=== PATIENT | female | born 1970 | race Caucasian/White ===

== ENCOUNTER → 2018-03-09 | Outpatient (CLI) | payer OTHER ==
[~2018-03-09] MED LIST: DOXYCYCLINE 10100 MG PO; PREDNISONE20 MG PO; TYLENOL/CODEINE1 ML PO
[2018-03-09 11:50] LABS: COLLECTION METHOD CLEAN CATCH
[2018-03-09 11:54] LABS: BASO # 0.1 (0.0-0.2); BASO % 1.3 % (0.0-2.0); EOS # 0.1 (0.0-0.7); EOS % 3.3 % (0-4.0); GRAN # 1.6 (1.4-6.5); GRAN % 39.9 % (42.2-75.2); HEMATOCRIT 40.5 % (37.0-47.0); HEMOGLOBIN 14.3 g/dl (12.5-16.0); LYMPH # 1.9 (1.2-3.4); LYMPH % 47.4 % (20.0-51.0); MEAN CELL VOLUME 86 fl (80.0-100.0); MEAN CORPUSCULAR HEMOGLOBIN 30 pg (27.0-31.0); MEAN CORPUSCULAR HGB CONC 35 g/dl (33.0-37.0); MONO # 0.3 (0.1-0.6); MONO % 7.8 % (1.7-9.3); PLATELET COUNT 211 K/mm3 (130-400); REDCELL DISTRIBUTION WIDTH-CV 11.9 % (11.5-14.5)
[2018-03-09 12:03] LABS: PH 7 (5-8); SQUAMOUS EPITHELIAL 0-2 /hpf; URINE APPEARANCE Clear; URINE BACTERIA None Seen /hpf; URINE BILIRUBIN Negative (NEGATIVE); URINE BLOOD Negative (NEGATIVE); URINE COLOR Straw; URINE GLUCOSE Negative (NEGATIVE); URINE KETONE Negative (NEGATIVE); URINE LEUKOCYTE ESTERASE Negative (NEGATIVE); URINE NITRATE Negative (NEGATIVE); URINE PROTEIN(semi-quant) Negative (NEGATIVE); URINE RBC 0-2 /hpf; URINE UROBILINOGEN Negative (NEGATIVE); URINE WBC 0-2 /hpf
[2018-03-09 12:26] LABS: ALBUMIN 4.7 gm/dL (3.5-5.0); BILIRUBIN,TOTAL 0.8 mg/dL (0.0-1.0); CALCIUM 9.6 mg/dL (8.4-10.2); CHOLESTEROL RISK RATIO 5.2; CREATININE, serum 0.66 mg/dL (0.52-1.25); POTASSIUM 3.5 mmol/L (3.4-5.0); TOTAL PROTEIN 8.2 gm/dL (6.4-8.2)
[2018-03-09 12:56] LABS: THYROID STIMULATING HORMONE 5.03 uIU/mL (0.465-4.680)
== END ==
LOC: ZCOL.LAB 11:44
DX: I10 Essential (primary) hypertension (principal)

== ENCOUNTER → 2018-08-19 | Outpatient (CLI) | payer OTHER ==
[~2018-08-19] MED LIST changes: +ZITHROMAX Z PA250 MG PO
[2018-08-19 21:29] LABS: HEMATOCRIT 39.1 % (37.0-47.0); HEMOGLOBIN 13.9 g/dl (12.5-16.0); MEAN CELL VOLUME 87 fl (80.0-100.0); MEAN CORPUSCULAR HEMOGLOBIN 31 pg (27.0-31.0); MEAN CORPUSCULAR HGB CONC 36 g/dl (33.0-37.0); MEAN PLATELET VOLUME 11.6 fl (7.4-10.4); PLATELET COUNT 218 K/mm3 (130-400); RED BLOOD COUNT 4.52 M/mm3 (4.10-5.30); REDCELL DISTRIBUTION WIDTH-CV 11.9 % (11.5-14.5)
[2018-08-19 21:41] LABS: ALBUMIN 4.6 gm/dL (3.5-5.0); BILIRUBIN,TOTAL 0.4 mg/dL (0.0-1.0); CALCIUM 9.7 mg/dL (8.4-10.2); CREATININE, serum 0.69 mg/dL (0.52-1.25); POTASSIUM 4.2 mmol/L (3.4-5.0); TOTAL PROTEIN 8.1 gm/dL (6.4-8.2)
[2018-08-19 21:54] LABS: ERYTHROCYTE SEDIMENTATION RATE 8 mm/hr (0-20)
[2018-08-19 22:11] LABS: THYROID STIMULATING HORMONE 4.73 uIU/mL (0.465-4.680)
== END ==
LOC: COL.LAB 19:57
PROVIDERS: Family Medicine
DX: I10 Essential (primary) hypertension (principal)

== ENCOUNTER → 2019-03-16 | Outpatient (CLI) | payer SELFPAY ==
[2019-03-16 10:15] LABS: THYROID STIMULATING HORMONE 6.23 uIU/mL (0.465-4.680)
== END ==
LOC: COL.LAB 08:29
DX: E03.9 Hypothyroidism, unspecified (principal)

== ENCOUNTER → 2019-04-25 | Outpatient (CLI) | payer SELFPAY | LOC: MC.RAD 14:30 | DX: Z12.31 Encounter for screening mammogram for malignant neoplasm of breast (principal) ==

== ENCOUNTER → 2019-05-09 | Outpatient (CLI) | payer SELFPAY ==
[2019-05-09 16:56] LABS: COLLECTION METHOD CLEAN CATCH
[2019-05-09 17:05] LABS: MUCOUS Present /lpf; PH 6 (5-8); SQUAMOUS EPITHELIAL 0-2 /hpf; URINE APPEARANCE Clear; URINE BACTERIA None Seen /hpf; URINE BILIRUBIN Negative (NEGATIVE); URINE BLOOD Negative (NEGATIVE); URINE COLOR Yellow; URINE GLUCOSE Negative (NEGATIVE); URINE KETONE Negative (NEGATIVE); URINE LEUKOCYTE ESTERASE Negative (NEGATIVE); URINE NITRATE Negative (NEGATIVE); URINE PROTEIN(semi-quant) Negative (NEGATIVE); URINE RBC 0-2 /hpf; URINE UROBILINOGEN Negative (NEGATIVE); URINE WBC 0-2 /hpf
== END ==
LOC: COL.LAB 15:19
PROVIDERS: Internal Medicine
DX: N39.0 Urinary tract infection, site not specified (principal)

== ENCOUNTER → 2019-08-02 | Outpatient (CLI) | payer SELFPAY ==
[2019-08-02 10:01] LABS: HEMATOCRIT 40.2 % (37.0-47.0); HEMOGLOBIN 14.1 g/dl (12.5-16.0)
[2019-08-02 10:18] LABS: ALBUMIN 4.7 gm/dL (3.5-5.0); BILIRUBIN,TOTAL 0.6 mg/dL (0.0-1.0); CALCIUM 9.5 mg/dL (8.4-10.2); CHOLESTEROL RISK RATIO 5.5; CREATININE, serum 0.71 (0.52-1.25); POTASSIUM 4.1 mmol/L (3.4-5.0); TOTAL PROTEIN 8.4 gm/dL (6.4-8.2)
[2019-08-02 10:48] LABS: THYROID STIMULATING HORMONE 3.18 uIU/mL (0.465-4.680)
== END ==
LOC: COL.LAB 09:25
PROVIDERS: Physician Assistant
DX: E03.9 Hypothyroidism, unspecified (principal); I10 Essential (primary) hypertension

== ENCOUNTER 2021-03-02 10:25 | Emergency (ER) | payer SELFPAY ==
[~2021-03-02] VITALS: Ht 157.5 cm; Wt 79.5 kg
[2021-03-02 11:57] LABS: ALANINE AMINOTRANSFERASE 59 U/L (4-34); ALBUMIN 4.6 gm/dL (3.5-5.0); ALKALINE PHOSPHATASE 135 U/L (50-136); ANION GAP 12 mmol/L (7-16); AST,SGOT 57 U/L (15-37); BILIRUBIN,TOTAL 0.5 mg/dL (0.0-1.0); BLOOD UREA NITROGEN 11 mg/dL (7-17); CARBON DIOXIDE 24 mmol/L (22-30); CHLORIDE 101 mmol/L (98-107); GLUCOSE 143 mg/dL (74-106); POTASSIUM 3.6 mmol/L (3.4-5.0); SODIUM 137 mmol/L (137-145); TOTAL PROTEIN 8.5 gm/dL (6.4-8.2)
[2021-03-02 12:00] LABS: BASO % 0.4 % (0.0-2.0); GRAN # 2.9 (1.4-6.5); GRAN % 55.4 % (42.2-75.2); HEMATOCRIT 43.1 % (37.0-47.0); HEMOGLOBIN 14.7 g/dl (12.5-16.0); LYMPH # 1.8 (1.2-3.4); LYMPH % 35.4 % (20.0-51.0); MEAN CELL VOLUME 87 fl (80.0-100.0); MEAN CORPUSCULAR HEMOGLOBIN 30 pg (27.0-31.0); MEAN CORPUSCULAR HGB CONC 34 g/dl (33.0-37.0); MEAN PLATELET VOLUME 10.7 fl (7.4-10.4); MONO # 0.4 (0.1-0.6); MONO % 8.6 % (1.7-9.3); PLATELET COUNT 150 K/mm3 (130-400); RED BLOOD COUNT 4.94 M/mm3 (4.10-5.30); REDCELL DISTRIBUTION WIDTH-CV 12.3 % (11.5-14.5)
[2021-03-02 12:10] LABS: TROPONIN-I < 0.012 ng/mL (0.000-0.035)
[2021-03-02 13:30] VITALS: BP 123/99; PULSE 96; TEMP 98
== END 2021-03-02 13:36 | disposition home or self-care (01) ==
LOC: COL.ER 10:25
PROVIDERS: Student in an Organized Health Care Education/Training Program
DX: U07.1 COVID-19 (principal); J06.9 Acute upper respiratory infection, unspecified; I10 Essential (primary) hypertension; J45.909 Unspecified asthma, uncomplicated
CPT/HCPCS: J8540

== ENCOUNTER 2021-03-05 19:56 | Emergency (ER) | payer SELFPAY ==
[~2021-03-05] VITALS: Ht 162.6 cm; Wt 68.2 kg
[2021-03-05 20:07] VITALS: TEMP 100.7
[2021-03-05] MEDS ORDERED: ZESTRIL 20MG TA20 MG PO (20:35)
[2021-03-05] MEDS ORDERED: SYNTHROID0.3 MG PO (20:36)
[2021-03-05 21:23] VITALS: BP 117/68; PULSE 96
[2021-03-06] MEDS ORDERED: LEVOXYL0.025 MG PO (21:47)
== END 2021-03-05 21:25 | disposition home or self-care (01) ==
LOC: COL.ER 19:56
DX: U07.1 COVID-19 (principal); J06.9 Acute upper respiratory infection, unspecified; Z73.0 Burn-out

== ENCOUNTER 2021-03-06 12:30 | Inpatient (IN) | payer SELFPAY ==
[~2021-03-06] VITALS: Ht 162.6 cm; Wt 74.1 kg
[~2021-03-06 12:30] MED LIST changes: +SYNTHROID0.3 MG PO; +ZESTRIL 20MG TA20 MG PO
[2021-03-06 15:30] LABS: BASO % 0.2 % (0.0-2.0); GRAN # 4.7 (1.4-6.5); GRAN % 85.5 % (42.2-75.2); HEMATOCRIT 39.3 % (37.0-47.0); HEMOGLOBIN 13.2 g/dl (12.5-16.0); LYMPH # 0.5 (1.2-3.4); LYMPH % 8.5 % (20.0-51.0); MEAN CELL VOLUME 89 fl (80.0-100.0); MEAN CORPUSCULAR HEMOGLOBIN 30 pg (27.0-31.0); MEAN CORPUSCULAR HGB CONC 34 g/dl (33.0-37.0); MEAN PLATELET VOLUME 10.6 fl (7.4-10.4); MONO # 0.3 (0.1-0.6); MONO % 5.2 % (1.7-9.3); PLATELET COUNT 192 K/mm3 (130-400); RED BLOOD COUNT 4.44 M/mm3 (4.10-5.30); REDCELL DISTRIBUTION WIDTH-CV 12.7 % (11.5-14.5)
[2021-03-06 15:32] LABS: ALANINE AMINOTRANSFERASE 54 U/L (4-34); ALBUMIN 3.9 gm/dL (3.5-5.0); ALKALINE PHOSPHATASE 280 U/L (50-136); ANION GAP 10 mmol/L (7-16); AST,SGOT 68 U/L (15-37); BILIRUBIN,TOTAL 0.4 mg/dL (0.0-1.0); BLOOD UREA NITROGEN 10 mg/dL (7-17); CALCIUM 8.7 mg/dL (8.4-10.2); CARBON DIOXIDE 23 mmol/L (22-30); CHLORIDE 107 mmol/L (98-107); CREATININE, serum 0.61 (0.52-1.25); GLUCOSE 179 mg/dL (74-106); POTASSIUM 3.5 mmol/L (3.4-5.0); SODIUM 140 mmol/L (137-145); TOTAL PROTEIN 7.8 gm/dL (6.4-8.2)
[2021-03-06 15:45] LABS: TROPONIN-I < 0.012 ng/mL (0.000-0.035)
[2021-03-06 20:30] VITALS: BP 126/60; PULSE 88; TEMP 98.8
--- NOTE | 2021-03-06 20:59 | NUR ---
Patient came to the unit 2049 with 2l of oxygen and 88 %, it was increased to 10 L by Josephine CHAVEZ. Now she is 95%.
[2021-03-06] MEDS ORDERED: LEVOXYL0.025 MG PO (21:47)
[2021-03-06 23:14] VITALS: BP 125/63; PULSE 92; TEMP 98.7
[2021-03-07 03:19] VITALS: BP 129/72; PULSE 88; TEMP 98.2
[2021-03-07 06:00] LABS: ARTERIAL BLD GAS O2 SATURATION 94.6 % (92-100); ARTERIAL BLD GAS TCO2 CT 21.9; ARTERIAL BLOOD GAS BASE EXCESS -1.9 (-2-2); ARTERIAL BLOOD GAS HCO3 20.9 meq/L (22-26); ARTERIAL BLOOD GAS PCO2 30.5 mmHg (35-45); ARTERIAL BLOOD GAS PO2 70.5 mmHg (80-100); ARTERIAL BLOOD GAS pH 7.45 (7.35-7.45)
--- NOTE | 2021-03-07 06:26 | NUR ---
Patient has had a calm night with the O2 at 10L high flow nasal canula. She is able to walk to the restroom with SOB and cough after walking. Patient is comfortable with her own clothes and refused the gown. No further needs at this time. Call light within reach. Shift report will be given to the next nurse.
--- NOTE | 2021-03-07 07:09 | NUR ---
PT AWAKE GETTING BLOOD DRAWN BY LENS MARKER, PT HAD OXYGEN IN, NON LABORED BREATHING, APPEARED PALE, TOOTHBRUSH TOOTHPASTE BASIN AND MASK BROUGHT IN FOR PT
[2021-03-07 07:22] LABS: BILIRUBIN,TOTAL 0.3 mg/dL (0.0-1.0); CREATININE, serum 0.68 (0.52-1.25); MAGNESIUM 2.4 mg/dL (1.6-2.3); POTASSIUM 4.2 mmol/L (3.4-5.0); TOTAL PROTEIN 7.8 gm/dL (6.4-8.2)
[2021-03-07 07:33] LABS: C-REACTIVE PROTEIN 13.3 mg/dL (0.0-0.9)
[2021-03-07 08:03] LABS: THYROID STIMULATING HORMONE 0.95 uIU/mL (0.350-4.940)
[2021-03-07 08:20] VITALS: BP 122/62; PULSE 65; TEMP 98.1
--- NOTE | 2021-03-07 09:13 | NUR ---
PT PLEASANT, AOX4, HAITIAN SPEAKING WITH VERY LITTLE HONG KONGER, DENIES PAIN OTHER THAN AFTER LOVENOX INJECTION. ASSESSMENT PERFORMED, MEDICATIONS GIVEN, VITALS REVIEWED, NO OTHER NEEDS AT THIS TIME.
[2021-03-07 12:19] VITALS: BP 133/68; PULSE 92; TEMP 98.2
[2021-03-07 15:49] VITALS: BP 122/68; PULSE 90; TEMP 98.6
--- NOTE | 2021-03-07 16:37 | NUR ---
early childhood education worker contacted patient via phone due to Covid status. Patient lives in [place] with her Cong and 4 young children. Reports she is fully independent. Patient does not have a DPOA-HC established and it is suggsted she does. is currently also hospitalized with Covid but she wasn't sure where he was. early childhood education worker will follow up.
--- NOTE | 2021-03-07 17:48 | NUR ---
kyrgyz speaking pt on 12L o2, extremely soa with activity, denies pain, eating well, denies n/v/d, afebrile, uneventful shift
[2021-03-07 19:40] VITALS: BP 134/77; PULSE 98; TEMP 99
--- NOTE | 2021-03-07 22:00 | NUR ---
Patient is resting in bed, alert and oriented. She presents tachypnea and O2 IS 88% at 12 L. Reports no pain, nausea, vomiting or dizzines. SOB on exertion. To notify RT about possible need to increase 02 liters.
--- NOTE | 2021-03-08 00:24 | NUR ---
Patient is now in airvo at 60 L and 82% O2. Her O2 is fluctuating between 85 and 92. Patient reports she is getting use to it. It has been difficult for her to use it. Her anxiety keep her in the higher 80s but now it is improving. Some melatonin has been provided. Continue monitoring.
[2021-03-08 00:32] LABS: ARTERIAL BLD GAS O2 SATURATION 90.6 % (92-100); ARTERIAL BLD GAS TCO2 CT 21.5; ARTERIAL BLOOD GAS BASE EXCESS -3.1 (-2-2); ARTERIAL BLOOD GAS HCO3 20.5 meq/L (22-26); ARTERIAL BLOOD GAS PCO2 32.6 mmHg (35-45); ARTERIAL BLOOD GAS PO2 58.7 mmHg (80-100); ARTERIAL BLOOD GAS pH 7.42 (7.35-7.45)
--- NOTE | 2021-03-08 02:00 | NUR ---
Patient was transfered to the ICU. She was with the Bipap, with 95 O2% sat and 100 HR. ABG with low levels of O2. Patient stated she do not want to be intubated, but agree for chest compressions, medications and electric shocks. Family was notified.
[2021-03-08 02:30] VITALS: BP 120/70; PULSE 100; TEMP 98.4
--- NOTE | 2021-03-08 02:47 | NUR ---
Patient arrives to ICU room 2 at 0230. She arrives receiving BiPap at 18/10, with 75% FiO2. Patient is dyspneic at rest; tachypneic, breathing 40-50 breaths/min. All other vitals within normal limits. Arrives with one peripheral 20G IV to the right hand. No fluids infusing at this time. She is alert, oriented, and serbian-speaking only. She follows verbal commands. At this time, she is tolerating BiPap well. She does not appear labored, however, she is quite short of breath. Patient arrives wearing her own pajamas and robe. She refuses hospital gown at this time. She has her cell phone, cement kiln operator, and sandals with her.
[2021-03-08 03:08] LABS: ARTERIAL BLD GAS TCO2 CT 21.2; ARTERIAL BLOOD GAS BASE EXCESS -3.4 (-2-2); ARTERIAL BLOOD GAS HCO3 20.2 meq/L (22-26); ARTERIAL BLOOD GAS PCO2 32.3 mmHg (35-45); ARTERIAL BLOOD GAS PO2 107.4 mmHg (80-100); ARTERIAL BLOOD GAS pH 7.41 (7.35-7.45)
[2021-03-08 04:00] VITALS: BP 113/54; PULSE 66; TEMP 98
--- NOTE | 2021-03-08 04:05 | NUR ---
Notified [facility] physician, Dr. Cordero, of patient's chest CT and ABG results. No new orders received at this time.
--- NOTE | 2021-03-08 07:00 | NUR ---
RECEIVED REPORT FROM CULLEN LINARES. PT RESTING EASILY ON BIPAP AT 55%. VSS. CALL LIGHT WITHIN REACH.
[2021-03-08 08:00] VITALS: BP 104/61; PULSE 65; TEMP 98.3
--- NOTE | 2021-03-08 10:58 | NUR ---
Due to pt fatigue I called pt's friend and listed contact, An Rodriguez at #[phone]. She stated the pt has 4 daughters: Teri the oldest- her phone #[phone], Urszula, Lizbeth and Danii. Currently they all live at home with pt and per An they have Covid. All of the daughters speak fluent Lao per An. The patient uses [facility] for her PCP. The patient uses [facility] and the clinic to obtain her medications. There is no current DPOA and ZENY Gonzales notified.
[2021-03-08 12:00] VITALS: BP 102/63; PULSE 91; TEMP 98.2
--- NOTE | 2021-03-08 13:37 | NUR ---
farmworker chicken farm and nurse assisted with patient in completing a durable power of trust and estates attorney for health care. Patient appointed her 19 year old daughter, Teri #[phone], and her sister, Alexsandra. Worker contacted Teri and Alexsandra and advised of the above information and emailed them both copies of the documents. Teri states she is caring for her younger siblings as they have covid at this time. Teri's paternal grandparents reside in [place] and are supportive of patient's children.
[2021-03-08 16:00] VITALS: BP 117/70; PULSE 95; TEMP 98.5
[2021-03-08 20:07] VITALS: BP 108/64; PULSE 93; TEMP 98.7
--- NOTE | 2021-03-08 20:21 | NUR ---
Assessment completed and charted. Patient tachpneic with shallow breathing. Denies shortness of breath at this time. Airvo at 30L 75% saturations 91%. Denies needs. Call light in reach.
[2021-03-09] VITALS (344 sets, daily range): BP systolic 97–141; BP diastolic 59–79; PULSE 65–102; TEMP 98.9–100; O2SAT 80–100
[2021-03-09 05:38] LABS: ARTERIAL BLD GAS O2 SATURATION 96.3 % (92-100); ARTERIAL BLD GAS TCO2 CT 21.4; ARTERIAL BLOOD GAS BASE EXCESS -3.5 (-2-2); ARTERIAL BLOOD GAS HCO3 20.4 meq/L (22-26); ARTERIAL BLOOD GAS PCO2 33.4 mmHg (35-45); ARTERIAL BLOOD GAS PO2 87.8 mmHg (80-100)
[2021-03-09 05:46] LABS: HEMATOCRIT 38.8 % (37.0-47.0); HEMOGLOBIN 12.9 g/dl (12.5-16.0); MEAN CELL VOLUME 89 fl (80.0-100.0); MEAN CORPUSCULAR HEMOGLOBIN 30 pg (27.0-31.0); MEAN CORPUSCULAR HGB CONC 33 g/dl (33.0-37.0); MEAN PLATELET VOLUME 9.5 fl (7.4-10.4); RED BLOOD COUNT 4.36 M/mm3 (4.10-5.30); REDCELL DISTRIBUTION WIDTH-CV 12.8 % (11.5-14.5)
[2021-03-09 05:48] LABS: PLATELET COUNT 357 K/mm3 (130-400)
[2021-03-09 06:11] LABS: ALBUMIN 3.8 gm/dL (3.5-5.0); BILIRUBIN,TOTAL 0.3 mg/dL (0.0-1.0); CALCIUM 8.7 mg/dL (8.4-10.2); CREATININE, serum 0.68 (0.52-1.25); POTASSIUM 4.2 mmol/L (3.4-5.0); TOTAL PROTEIN 7.3 gm/dL (6.4-8.2)
[2021-03-09 06:18] LABS: ANISOCYTOSIS 1+; BURR CELLS 2+; LYMPHOCYTE 15 % (20.0-51.0); METAMYELOCYTE 1 % (0-0); MYELOCYTE 2 % (0-0); NEUTROPHILS 79 % (42.0-75.2); PLATELET ESTIMATE INCREASED (NORMAL)
[2021-03-09 06:19] LABS: HYPOCHROMIA 1+
--- NOTE | 2021-03-09 06:25 | NUR ---
Patient received x1 dose of ativan for anxiety with bipap during night. Wore bipap most of night. On airvo this AM. Otherwise uneventful night.
--- NOTE | 2021-03-09 08:00 | NUR ---
Patient resting in bed with AirVo on. VS WNL. Report received from CULLEN Arzate. Will continue to monitor.
--- NOTE | 2021-03-09 09:30 | NUR ---
Patient was assisted to the commode and she becomes very anxious with activity and tachypnea. Dr. Kidd called and PRN ativan frequency is increased to Q4H PRN. Ativan given and she calms, SPO2 improves. Will continue to monitor.
--- NOTE | 2021-03-09 14:37 | NUR ---
Patient continues to be on 50L/75% AirVo. She becomes tachypneic with conversation or exertion, with SPO2 falling into 80s easily. Recovery from that point takes several minutes. Will continue to monitor.
--- NOTE | 2021-03-09 19:00 | NUR ---
Report given to CULLEN Arzate
--- NOTE | 2021-03-09 20:54 | NUR ---
Assessment complete and charted. Given ativan for anxiety after using restroom. Denies other needs. Call light in reach.
[2021-03-10] VITALS (7 sets, daily range): BP systolic 108–147; BP diastolic 58–78; PULSE 69–95; TEMP 97.9–98.5
--- NOTE | 2021-03-10 00:15 | NUR ---
Patient transferred to [facility] at 2350. Report given to Debbi BERMAN
--- NOTE | 2021-03-10 05:32 | NUR ---
Patient slept well since transferred to the medical floor. SPO2 remains above 90% on Airvo 50L/ FiO2 85%. Patient got up and use bedside commode at 0500. Patient became SOB with activities and got very anxious. PRN Ativan given for anxiety. PRN Robitussin given for occasional cough. Call light within reach. Will continue to monitor.
--- NOTE | 2021-03-10 07:01 | NUR ---
PT SLEEPING IN ROOM WITH AIRVO IN PLACE
[2021-03-10 08:47] LABS: HEMATOCRIT 38.4 % (37.0-47.0); HEMOGLOBIN 12.9 g/dl (12.5-16.0); MEAN CELL VOLUME 87 fl (80.0-100.0); MEAN CORPUSCULAR HEMOGLOBIN 29 pg (27.0-31.0); MEAN CORPUSCULAR HGB CONC 34 g/dl (33.0-37.0); MEAN PLATELET VOLUME 9.5 fl (7.4-10.4); PLATELET COUNT 378 K/mm3 (130-400); RED BLOOD COUNT 4.41 M/mm3 (4.10-5.30); REDCELL DISTRIBUTION WIDTH-CV 12.4 % (11.5-14.5)
[2021-03-10 09:02] LABS: ALBUMIN 3.5 gm/dL (3.5-5.0); BILIRUBIN,TOTAL 0.3 mg/dL (0.0-1.0); C-REACTIVE PROTEIN 1.8 mg/dL (0.0-0.9); CALCIUM 8.8 mg/dL (8.4-10.2); CREATININE, serum 0.75 (0.52-1.25); POTASSIUM 3.9 mmol/L (3.4-5.0); TOTAL PROTEIN 6.9 gm/dL (6.4-8.2)
[2021-03-10 09:37] LABS: BAND 2 % (0-10); LYMPHOCYTE 13 % (20.0-51.0); METAMYELOCYTE 1 % (0-0); NEUTROPHILS 82 % (42.0-75.2); PLATELET ESTIMATE NORMAL (NORMAL)
[2021-03-10 09:38] LABS: ANISOCYTOSIS 1+; MICROCYTOSIS 1+
--- NOTE | 2021-03-10 10:37 | NUR ---
PT PLEASANT, AOX4, SPEAKS LITTLE DIVEHI, PT ABLE TO COMMUNICATE HER ANXIETY, ATIVAN GIVEN WITH OTHER MEDICATIONS. UPON ENTERING ROOM PT HAD OXYGEN OUT OF NOSE, TOLD HER PT PUT THE OXYGEN BACK AND SHE DID, VITALS TAKEN, ASSESSMENT PERFORMED, BREAKFAST ORDERED FOR PT AND BROUGHT IN WHEN IT ARRIVED ON THE FLOOR. PT APPEARS VERY WEAK, PAINTINGS CONSERVATOR EQUAL, NO OTHER NEEDS AT THIS TIME
--- NOTE | 2021-03-10 11:58 | NUR ---
ASSISTED PT TO BEDSIDE COMMODE. PT HAD LOOSE BM AND URINE OUTPUT. PT ASSISTED BACK TO BED AND PT SOB. LABORED TACHYPNIC BREATHING PRESENT. PULSE OX 85% UPON RETURNING TO BED. STAYED WITH PT PT RECOVERED. ORDERED LUNCH FOR PT.
--- NOTE | 2021-03-10 17:00 | NUR ---
PT ANXIOUS IN AM, CALMED DOWN IN AFTERNOON. PT ON AIRVO, MULTIPLE FAMILY MEMBERS UPDATED ON PT STATUS. PT DENIES PAIN, UNEVENTFUL SHIFT OVERALL
--- NOTE | 2021-03-10 23:06 | NUR ---
Assessment completed,alert and oriented. Patient is on airvo at 60Lat 90%. Patient get up to bedside commode independently with SOB. Able to get back to bed with minimal difficulty breathing. Patient speaks hebrew and little amharic. Able to say what she wants. Denies pain and other complains. She will be on bipap and RT is ready to put it on. Will continue to follow.
[2021-03-11 03:37] VITALS: BP 130/73; PULSE 70; TEMP 97.8
[2021-03-11 08:20] VITALS: BP 131/63; PULSE 92; TEMP 98.7
[2021-03-11 08:24] LABS: EOS # 0.1 (0.0-0.7); EOS % 1.1 % (0-4.0); GRAN # 5.5 (1.4-6.5); HEMATOCRIT 41.8 % (37.0-47.0); HEMOGLOBIN 14.1 g/dl (12.5-16.0); LYMPH # 1.4 (1.2-3.4); LYMPH % 18.9 % (20.0-51.0); MEAN CELL VOLUME 87 fl (80.0-100.0); MEAN CORPUSCULAR HEMOGLOBIN 29 pg (27.0-31.0); MEAN CORPUSCULAR HGB CONC 34 g/dl (33.0-37.0); MEAN PLATELET VOLUME 9.6 fl (7.4-10.4); MONO # 0.4 (0.1-0.6); MONO % 5.8 % (1.7-9.3); PLATELET COUNT 461 K/mm3 (130-400); RED BLOOD COUNT 4.82 M/mm3 (4.10-5.30); REDCELL DISTRIBUTION WIDTH-CV 12.2 % (11.5-14.5)
[2021-03-11 08:31] LABS: ALBUMIN 3.7 gm/dL (3.5-5.0); BILIRUBIN,TOTAL 0.3 mg/dL (0.0-1.0); C-REACTIVE PROTEIN 1.3 mg/dL (0.0-0.9); CALCIUM 8.9 mg/dL (8.4-10.2); CREATININE, serum 0.77 (0.52-1.25); POTASSIUM 3.6 mmol/L (3.4-5.0); TOTAL PROTEIN 7.3 gm/dL (6.4-8.2)
--- NOTE | 2021-03-11 08:57 | NUR ---
Pt awake upon entry, no C/O pain at this time. Dyspnea at rest with diminished lung sounds. Shiuft assessment complete, left Pt call light in reach, bed in lowest position, Pt needs met.
[2021-03-11 12:40] VITALS: BP 128/72; PULSE 87; TEMP 98.6
[2021-03-11 17:16] VITALS: BP 130/66; PULSE 85; TEMP 98.1
--- NOTE | 2021-03-11 18:12 | NUR ---
Pt resting well in the room. No c/o pain during the day. Currently on 60 LPM AIRVO. Needs met throughout the day. VS have remained stable.
[2021-03-11 20:41] VITALS: BP 151/76; PULSE 87; TEMP 99
[2021-03-12] VITALS (473 sets, daily range): BP systolic 87–142; BP diastolic 52–83; PULSE 54–99; TEMP 97.6–98.5; O2SAT 87–99
--- NOTE | 2021-03-12 01:00 | NUR ---
Patient not tolerating Bipap, increased respiratory rate to 50-60/min, c/o anxiety, previously medicated with prn Ativan, c/o chest pain, VS as listed, Call placed to Jennifer HASSAN, scrap preparation supervisor, charge nurse, ICU charge nurse came to bedside.
--- NOTE | 2021-03-12 01:19 | NUR ---
House supervisior notified this nurse patient breathing 50-60 RR per min. on bipap. Assessed patient in room. Patient on bipap 93% saturations on 85% FiO2. Given 1mg of ativan per Jennifer HASSAN. Patient code status reviewed. Does not wish intubation. Patient reporting sharp chest pains and observed rubbing chest. Jennifer HASSAN aware. RT in room for breathing treatment and ABG/EKG.
[2021-03-12 01:23] LABS: ARTERIAL BLD GAS O2 SATURATION 94.2 % (92-100); ARTERIAL BLD GAS TCO2 CT 25.2; ARTERIAL BLOOD GAS BASE EXCESS -2.1 (-2-2); ARTERIAL BLOOD GAS HCO3 23.8 meq/L (22-26); ARTERIAL BLOOD GAS PCO2 44.6 mmHg (35-45); ARTERIAL BLOOD GAS PO2 78.8 mmHg (80-100); ARTERIAL BLOOD GAS pH 7.35 (7.35-7.45)
--- NOTE | 2021-03-12 03:15 | NUR ---
Patient transferred to ICU room 4 per Jennifer HASSAN - report given to Orville BERMAN, Spoke to daughter Teri - updated on patient condition and transfer.
[2021-03-12 05:11] LABS: ARTERIAL BLD GAS O2 SATURATION 90.9 % (92-100); ARTERIAL BLD GAS TCO2 CT 25.8; ARTERIAL BLOOD GAS BASE EXCESS -0.5 (-2-2); ARTERIAL BLOOD GAS HCO3 24.5 meq/L (22-26); ARTERIAL BLOOD GAS PCO2 41.4 mmHg (35-45); ARTERIAL BLOOD GAS pH 7.39 (7.35-7.45)
--- NOTE | 2021-03-12 06:36 | NUR ---
PT ADMITTED TO ICU AFTER PRESENTING WITH RESPIRATORY DISTRESS ON MEDICAL UNIT. ORIGINALLY NOTED THAT PATIENT WAS FEELING SHORT OF BREATH. PT WAS PLACED ON BIPAP THEN BECAME ANXIOUS. SEVERAL ATIVAN DOSES GIVEN TO ATTEMPT TO CALM PT. PT RESPIRATIONS WERE 50+ PER MIN WITH SATS IN THE 80S. NURSES ASKED PATIENT MULTIPLE TIMES IF SHE WOULD LIKE TO BE INTUBATED AND PT ORIGINALLY ANSWERED NO BUT AFTER EXPLAINING TO PATIENT THAT A VENT IS NOT "LIFE SUPPORT" NOR DOES IT MEAN YOU WILL , SHE AGREED TO BE INTUBATED. DUE TO PT PRESENTATION, AN ABG AND CHEST CXR WERE COMPLETED. CXR SHOWED SMALL MEDIASTINAL PNEUMOTHORAX THAT DID NOT REQUIRE CHEST TUBE AT THIS TIME. PT REPORTING ALOT OF PAIN IN CHEST/STERNUM. MORHINE GIVEN AND EKG OBTAINED. PRECEDEX DRIP ALSO STARTED TO HELP REDUCE TACHYPNEA. WILL CONTINUE CONTINUOUS VITALS IN ICU AT THIS TIME.
--- NOTE | 2021-03-12 08:30 | NUR ---
Patient drowsy on precedex but easily arousable. Follows simple commands appropriately. Will continue to monitor.
[2021-03-12 08:40] LABS: BASO % 0.2 % (0.0-2.0); EOS # 0.1 (0.0-0.7); EOS % 1.5 % (0-4.0); GRAN # 7.9 (1.4-6.5); GRAN % 86.8 % (42.2-75.2); HEMOGLOBIN 13.3 g/dl (12.5-16.0); LYMPH # 0.7 (1.2-3.4); LYMPH % 7.4 % (20.0-51.0); MEAN CELL VOLUME 86 fl (80.0-100.0); MEAN CORPUSCULAR HEMOGLOBIN 29 pg (27.0-31.0); MEAN CORPUSCULAR HGB CONC 34 g/dl (33.0-37.0); MEAN PLATELET VOLUME 9.2 fl (7.4-10.4); MONO # 0.3 (0.1-0.6); MONO % 3.2 % (1.7-9.3); PLATELET COUNT 419 K/mm3 (130-400); RED BLOOD COUNT 4.55 M/mm3 (4.10-5.30); REDCELL DISTRIBUTION WIDTH-CV 12.2 % (11.5-14.5)
[2021-03-12 08:51] LABS: CALCIUM 8.9 mg/dL (8.4-10.2); CREATININE, serum 0.69 (0.52-1.25); MAGNESIUM 2.1 mg/dL (1.6-2.3); POTASSIUM 4.3 mmol/L (3.4-5.0)
--- NOTE | 2021-03-12 15:30 | NUR ---
Cuban translater reached via telephone to explain chest tube placement to patient. Also received verbal consent from the via telephone.
--- NOTE | 2021-03-12 15:54 | NUR ---
at bedside to place chest tub. tolerated well. Finished at 1605. Called Radiology to confirm placement.
[2021-03-12 17:34] LABS: ARTERIAL BLD GAS O2 SATURATION 87.8 % (92-100); ARTERIAL BLD GAS TCO2 CT 25.4; ARTERIAL BLOOD GAS BASE EXCESS -0.3 (-2-2); ARTERIAL BLOOD GAS HCO3 24.2 meq/L (22-26); ARTERIAL BLOOD GAS PCO2 39.2 mmHg (35-45); ARTERIAL BLOOD GAS PO2 55.8 mmHg (80-100); ARTERIAL BLOOD GAS pH 7.41 (7.35-7.45)
--- NOTE | 2021-03-12 18:19 | NUR ---
Patient has been bipap dependent during this shift. After giving sips of water patient immediately wanted BIPAP back on. Notified hospitalist and will initate IV fluids.
[2021-03-13] VITALS (865 sets, daily range): BP systolic 74–165; BP diastolic 44–85; PULSE 50–121; TEMP 98.4–98.9; O2SAT 77–98
[2021-03-13 00:10] LABS: ARTERIAL BLD GAS O2 SATURATION 92.3 % (92-100); ARTERIAL BLD GAS TCO2 CT 24.3; ARTERIAL BLOOD GAS BASE EXCESS -1.2 (-2-2); ARTERIAL BLOOD GAS HCO3 23.2 meq/L (22-26); ARTERIAL BLOOD GAS PO2 68.7 mmHg (80-100)
[2021-03-13 04:48] LABS: BASO % 0.2 % (0.0-2.0); EOS # 0.2 (0.0-0.7); EOS % 2.3 % (0-4.0); GRAN # 8.9 (1.4-6.5); GRAN % 89.5 % (42.2-75.2); HEMOGLOBIN 13.6 g/dl (12.5-16.0); LYMPH # 0.5 (1.2-3.4); LYMPH % 4.9 % (20.0-51.0); MEAN CELL VOLUME 87 fl (80.0-100.0); MEAN CORPUSCULAR HEMOGLOBIN 30 pg (27.0-31.0); MEAN CORPUSCULAR HGB CONC 34 g/dl (33.0-37.0); MEAN PLATELET VOLUME 9.7 fl (7.4-10.4); MONO # 0.3 (0.1-0.6); MONO % 2.5 % (1.7-9.3); PLATELET COUNT 385 K/mm3 (130-400); RED BLOOD COUNT 4.58 M/mm3 (4.10-5.30); REDCELL DISTRIBUTION WIDTH-CV 12.6 % (11.5-14.5)
[2021-03-13 05:00] LABS: C-REACTIVE PROTEIN 0.9 mg/dL (0.0-0.9); CALCIUM 8.7 mg/dL (8.4-10.2); CREATININE, serum 0.62 (0.52-1.25); POTASSIUM 4.1 mmol/L (3.4-5.0)
[2021-03-13 05:17] LABS: ARTERIAL BLD GAS O2 SATURATION 89.8 % (92-100); ARTERIAL BLD GAS TCO2 CT 24.5; ARTERIAL BLOOD GAS BASE EXCESS -0.8 (-2-2); ARTERIAL BLOOD GAS HCO3 23.4 meq/L (22-26); ARTERIAL BLOOD GAS PCO2 37.1 mmHg (35-45); ARTERIAL BLOOD GAS PO2 60.1 mmHg (80-100); ARTERIAL BLOOD GAS pH 7.42 (7.35-7.45)
--- NOTE | 2021-03-13 07:00 | NUR ---
RECEIVED REPORT FROM CULLEN FERRARA. PT RESTING EASILY ON BIPAP AT 100%. CALL LIGHT WITHIN REAC. VSS. SEE GTT FLOWSHEET.
--- NOTE | 2021-03-13 07:43 | NUR ---
[facility] PROVIDER NOTIFIED AT APPROX 0600 OF DDIMER ELEVATED. REVIEW PT DIAGNOSIS AND REASON FOR CHECKING (ELEVATED PLATELETS AND COVID DIAGNOSIS). ELEVATED DDIMER EXPECTED AND NO CHANGE TO BE MADE TO PLAN OF CARE.
--- NOTE | 2021-03-13 08:40 | NUR ---
DR PERDOMO REQUESTS PRECEDEX TO BE WEANED OFF AND ONLY TO RESTART IF PT UNABLE TO CALM DOWN AFTER GTT IS OFF AND VITAL SIGNS UNSTABLE. WILL MONITOR CLOSELY. SEE GTT FLOWSHEET.
[2021-03-13 16:59] LABS: ARTERIAL BLD GAS O2 SATURATION 88.7 % (92-100); ARTERIAL BLD GAS TCO2 CT 22.7; ARTERIAL BLOOD GAS BASE EXCESS -1.8 (-2-2); ARTERIAL BLOOD GAS HCO3 21.7 meq/L (22-26); ARTERIAL BLOOD GAS PCO2 33.3 mmHg (35-45); ARTERIAL BLOOD GAS pH 7.43 (7.35-7.45)
--- NOTE | 2021-03-13 17:40 | NUR ---
DR RUBALCAVA NOTIFIED OF ABG AND CURRENT VS. STATES WILL TALK TO DR PERDOMO AND GET BACK TO RN.
--- NOTE | 2021-03-13 18:05 | NUR ---
DR RUBALCAVA CALLS BACK AND STATES DR PERDOMO WOULD LIKE PT TO BE INTUBATED. WARDROBE SUPERVISOR CECILE USED AND PT NODS HEAD IN UNDERSTANDING OF INTUBATION. DR RUBALCAVA STATES WILL CALL DAUGHTER CAN TO UPDATE HER. ANESTHESIA NOTIFIED. AWAITING ARRIVAL.
--- NOTE | 2021-03-13 19:00 | NUR ---
CARE GIVEN TO CULLEN FLOREZ. ANESTHESIA AT BEDSIDE. SET UP STARTED FOR INTUBATION PROCESS.
--- NOTE | 2021-03-13 19:10 | NUR ---
1904 PATIENT IS GIVING CONSENT TO BE INTUBATED 1907 16 F OLIVERA PLACED/ 50 CC RESDIUAL CLEAR YELLOW URINE, FASTENED TO RIGHT UPPER LEG 1910 TIME OUT WITH TOMAS SHAW DIE CUTTER DIAMOND FOR INTUBATION 1911 200MG OF PROPOFOLOL ADMINISTERED MICAH PICC/ 100 MG SUCC ASMINISTERED MICAH PICC 1913 7.5 ET TUBE INSERTED TO 22 AT TEETH, COLOR CHANGE CO2 DETECTOR FROM GREEN TO GOLD, LUNG SOUNDS HEARD BILATERAL NO NOSE OVER STOMACH 1914 FENT AND PROPOFOL IV BEGINS 1916 RESTRAINTS APPLIED TO WRIST 1918 OG PLACED 14 F 65 TO LIPS, INTERMITTANT SUCTION PLACED 1918 CHEST XRAY OBTAINED 1922 IV NS BOLUS BEGINS
[2021-03-13 21:07] LABS: ARTERIAL BLD GAS TCO2 CT 21.4; ARTERIAL BLOOD GAS BASE EXCESS -5.2 (-2-2); ARTERIAL BLOOD GAS HCO3 20.2 meq/L (22-26); ARTERIAL BLOOD GAS PO2 87.9 mmHg (80-100); ARTERIAL BLOOD GAS pH 7.33 (7.35-7.45)
[2021-03-14] VITALS (730 sets, daily range): BP systolic 81–173; BP diastolic 57–88; PULSE 52–86; TEMP 96.7–99.2; O2SAT 66–100
[2021-03-14 04:12] LABS: ARTERIAL BLD GAS O2 SATURATION 94.6 % (92-100); ARTERIAL BLD GAS TCO2 CT 19.7; ARTERIAL BLOOD GAS BASE EXCESS -5.5 (-2-2); ARTERIAL BLOOD GAS HCO3 18.7 meq/L (22-26); ARTERIAL BLOOD GAS PO2 78.1 mmHg (80-100); ARTERIAL BLOOD GAS pH 7.37 (7.35-7.45)
[2021-03-14 04:42] LABS: HEMATOCRIT 40.2 % (37.0-47.0); MEAN CELL VOLUME 85 fl (80.0-100.0); MEAN CORPUSCULAR HEMOGLOBIN 30 pg (27.0-31.0); MEAN CORPUSCULAR HGB CONC 35 g/dl (33.0-37.0); MEAN PLATELET VOLUME 9.5 fl (7.4-10.4); RED BLOOD COUNT 4.75 M/mm3 (4.10-5.30); REDCELL DISTRIBUTION WIDTH-CV 12.3 % (11.5-14.5)
[2021-03-14 04:48] LABS: PLATELET COUNT 489 K/mm3 (130-400)
[2021-03-14 04:52] LABS: CALCIUM 8.9 mg/dL (8.4-10.2); CREATININE, serum 0.76 (0.52-1.25); POTASSIUM 4.2 mmol/L (3.4-5.0)
[2021-03-14 05:00] LABS: BAND 4 % (0-10); EOSINOPHIL 1 % (0-4); LYMPHOCYTE 5 % (20.0-51.0); NEUTROPHILS 89 % (42.0-75.2); PLATELET ESTIMATE INCREASED (NORMAL)
--- NOTE | 2021-03-14 05:23 | NUR ---
PATIENT JUST WAS INTUBATED AND NOW IS PRONE NO SEDATION VACATION TO DAY
[2021-03-14 10:55] LABS: MAGNESIUM 2.4 mg/dL (1.6-2.3); PHOSPHOROUS 4.7 mg/dL (2.5-4.5)
[2021-03-14 15:13] LABS: ARTERIAL BLD GAS O2 SATURATION 90.4 % (92-100); ARTERIAL BLD GAS TCO2 CT 22.8; ARTERIAL BLOOD GAS BASE EXCESS -2.5 (-2-2); ARTERIAL BLOOD GAS HCO3 21.7 meq/L (22-26); ARTERIAL BLOOD GAS PCO2 35.9 mmHg (35-45); ARTERIAL BLOOD GAS PO2 60.3 mmHg (80-100)
--- NOTE | 2021-03-14 17:26 | NUR ---
SEDATION VACATION NOT PERFORMED AT THIS TIME AND NO DOSE CHANGE TO MEDICATIONS. THE PATIENT IS PRONED AND EASILY AROUSED AND FOLLOWS COMMANDS. THE PATIENT NODS HEAD YES OR NO TO QUESTIONS AND PAPER PATTERN FOLDER HANDS AND MOVES FEET WHEN ASKED. MRS. RENTERIA IS RESTING COMFORTABLY AND WILL CONTINUE TO MONITOR.
[2021-03-14 20:39] LABS: CALCIUM 8.7 mg/dL (8.4-10.2); CREATININE, serum 0.76 (0.52-1.25); POTASSIUM 3.7 mmol/L (3.4-5.0)
[2021-03-15] VITALS (695 sets, daily range): BP systolic 114–160; BP diastolic 61–84; PULSE 73–120; TEMP 98.7–99.3; O2SAT 82–100
[2021-03-15 03:31] LABS: ARTERIAL BLD GAS O2 SATURATION 92.6 % (92-100); ARTERIAL BLD GAS TCO2 CT 25.2; ARTERIAL BLOOD GAS BASE EXCESS 0.9 (-2-2); ARTERIAL BLOOD GAS HCO3 24.2 meq/L (22-26); ARTERIAL BLOOD GAS PCO2 34.6 mmHg (35-45); ARTERIAL BLOOD GAS pH 7.46 (7.35-7.45)
[2021-03-15 04:27] LABS: BASO % 0.2 % (0.0-2.0); EOS # 0.2 (0.0-0.7); EOS % 1.4 % (0-4.0); GRAN % 87.2 % (42.2-75.2); HEMOGLOBIN 13.2 g/dl (12.5-16.0); LYMPH # 0.9 (1.2-3.4); LYMPH % 7.5 % (20.0-51.0); MEAN CELL VOLUME 84 fl (80.0-100.0); MEAN CORPUSCULAR HEMOGLOBIN 29 pg (27.0-31.0); MEAN CORPUSCULAR HGB CONC 35 g/dl (33.0-37.0); MEAN PLATELET VOLUME 10.2 fl (7.4-10.4); MONO # 0.3 (0.1-0.6); MONO % 2.7 % (1.7-9.3); RED BLOOD COUNT 4.51 M/mm3 (4.10-5.30); REDCELL DISTRIBUTION WIDTH-CV 12.5 % (11.5-14.5)
[2021-03-15 04:28] LABS: PLATELET COUNT 347 K/mm3 (130-400)
[2021-03-15 04:40] LABS: ALBUMIN 3.2 gm/dL (3.5-5.0); BILIRUBIN,TOTAL 0.3 mg/dL (0.0-1.0); C-REACTIVE PROTEIN 0.8 mg/dL (0.0-0.9); CALCIUM 8.9 mg/dL (8.4-10.2); CREATININE, serum 0.67 (0.52-1.25); MAGNESIUM 2.4 mg/dL (1.6-2.3); POTASSIUM 3.4 mmol/L (3.4-5.0); TOTAL PROTEIN 6.2 gm/dL (6.4-8.2)
--- NOTE | 2021-03-15 05:41 | NUR ---
THE PATIENT BEGINS FAST BREATHING AND COUGHING, SATS BEGIN TO LOWER HEART RATE IN UPPER 110s PLACED PATIENT BACK ON THE DOSES PRIOR ALL CALM
[2021-03-15 09:38] LABS: MUCOUS Present /lpf; PH 6 (5-8); SQUAMOUS EPITHELIAL 0-2 /hpf; URINE APPEARANCE Cloudy; URINE BACTERIA None Seen /hpf; URINE BILIRUBIN Negative (NEGATIVE); URINE BLOOD 3+ (NEGATIVE); URINE COLOR Yellow; URINE GLUCOSE Negative (NEGATIVE); URINE KETONE 1+ (NEGATIVE); URINE LEUKOCYTE ESTERASE Negative (NEGATIVE); URINE NITRATE Negative (NEGATIVE); URINE PROTEIN(semi-quant) 1+ (NEGATIVE); URINE RBC >50 /hpf; URINE UROBILINOGEN Negative (NEGATIVE)
[2021-03-15 09:51] LABS: COLLECTION METHOD CATHETER
[2021-03-16] VITALS (632 sets, daily range): BP systolic 70–152; BP diastolic 39–101; PULSE 75–118; TEMP 98.4–100.7; O2SAT 66–100
[2021-03-16 05:10] LABS: HEMOGLOBIN 11.6 g/dl (12.5-16.0); MEAN CELL VOLUME 88 fl (80.0-100.0); MEAN CORPUSCULAR HEMOGLOBIN 29 pg (27.0-31.0); MEAN CORPUSCULAR HGB CONC 33 g/dl (33.0-37.0); MEAN PLATELET VOLUME 10.3 fl (7.4-10.4); RED BLOOD COUNT 3.94 M/mm3 (4.10-5.30); REDCELL DISTRIBUTION WIDTH-CV 12.7 % (11.5-14.5)
[2021-03-16 05:18] LABS: HEMATOCRIT 34.7 % (37.0-47.0); PLATELET COUNT 232 K/mm3 (130-400)
--- NOTE | 2021-03-16 05:22 | NUR ---
NO VACATION SEDATION CAUSE PATIENT IS PRONE, PATIENT DOES AWAKEN EASILY
[2021-03-16 05:23] LABS: CALCIUM 7.9 mg/dL (8.4-10.2); CREATININE, serum 0.54 (0.52-1.25); MAGNESIUM 2.1 mg/dL (1.6-2.3); PHOSPHOROUS 1.7 mg/dL (2.5-4.5); POTASSIUM 4.1 mmol/L (3.4-5.0)
[2021-03-16 05:31] LABS: ARTERIAL BLD GAS O2 SATURATION 84.1 % (92-100); ARTERIAL BLD GAS TCO2 CT 27.7; ARTERIAL BLOOD GAS BASE EXCESS 1.5 (-2-2); ARTERIAL BLOOD GAS HCO3 26.4 meq/L (22-26); ARTERIAL BLOOD GAS PCO2 42.8 mmHg (35-45); ARTERIAL BLOOD GAS PO2 49.9 mmHg (80-100); ARTERIAL BLOOD GAS pH 7.41 (7.35-7.45)
[2021-03-16 06:33] LABS: BAND 1 % (0-10); EOSINOPHIL 2 % (0-4); LYMPHOCYTE 7 % (20.0-51.0); METAMYELOCYTE 1 % (0-0); NEUTROPHILS 85 % (42.0-75.2); PLATELET ESTIMATE NORMAL (NORMAL)
--- NOTE | 2021-03-16 07:20 | NUR ---
RECEIVED REPORT FROM CULLEN FLOREZ. PT UNPRONED AT THIS TIME. TOLERATED WELL. RT STATES TURNED FI2 DOWN TO 70%. VSS. VOLLEYBALL ASSISTANT COACH IN PLACE. OGT WITH TF INFUSING AT 65ML/HR. FC PATENT AND DRAINING TO GRAVITY. SEE GTT FLOWSHEET. OTHER VENT SETTINGS: AC, TV 400, PEEP 15, RR 24.
--- NOTE | 2021-03-16 09:20 | NUR ---
SPOKE WITH DR PERDOMO ABOUT PT'S FEVER, PHOS LEVEL, AND UO. NEW ORDERS RECEIVED.
--- NOTE | 2021-03-16 10:44 | NUR ---
DR PERDOMO REQUESTS ART LINE TO BE PLACED D/T HARD STICK FOR ABGs. WILL NOTIFY ANESTHESIA.
--- NOTE | 2021-03-16 12:42 | NUR ---
RT RADIAL ART LINE PLACED ON ANESTHESIA.
--- NOTE | 2021-03-16 14:27 | NUR ---
NOTIFIED DR PERDOMO OF PT'S SBP AND POX DROPPING AND LEVOPHED STARTED BUT HR IS SHOWING BIGEMINAL PVCs WITH HR 140s. PROVIDER STATES TO START VASOPRESSIN.
[2021-03-16 14:29] LABS: ARTERIAL BLD GAS O2 SATURATION 61.9 % (92-100); ARTERIAL BLD GAS TCO2 CT 20.1; ARTERIAL BLOOD GAS BASE EXCESS -8.8 (-2-2); ARTERIAL BLOOD GAS HCO3 18.7 meq/L (22-26); ARTERIAL BLOOD GAS PCO2 46.3 mmHg (35-45); ARTERIAL BLOOD GAS pH 7.22 (7.35-7.45)
[2021-03-16 14:30] LABS: ARTERIAL BLOOD GAS PO2 36.1 mmHg (80-100)
--- NOTE | 2021-03-16 14:34 | NUR ---
DR PERDOMO CALLS BACK ABOUT ABG RESULTS. SPEAKS TO MARY RT ABOUT VENT CHANGES. PROVIDER STATES TO INCREASE LEVOPHED IF NEED TO FOR BP. DR RUBALCAVA NOTIFIED OF WHAT IS GOING ON AND STATES WILL BE DOWN SHORTLY.
--- NOTE | 2021-03-16 14:50 | NUR ---
DR PERDOMO CALLS BACK AND ASKS TO SPEAK TO DR RUBALCAVA ABOUT POC. PROVIDERS DISCUSS TO HAVE PT TAKEN TO CT PE PROTOCOL EXAM. DR RUBALCAVA NOTIFIES DAUGHTER CAN ABOUT WHAT IS GOING ON. RN SPEAKS TO INTERFACE DEVELOPER AND GETS PERMISSION FOR THE FOUR DAUGHTERS TO VISIT MOTHER BECAUSE OF SITUATION BEING GUARDED.
--- NOTE | 2021-03-16 15:38 | NUR ---
PT TO CT AT 1516. BACK AT 1538.
--- NOTE | 2021-03-16 15:45 | NUR ---
DR PERDOMO AT BEDSIDE. SBP 120s. CHANGED IVFS AROUND, SEE MAR. STATES TO STOP PRESSORS AT THIS TIME AND MONITOR BP. PROVIDER STATES IF SBP DROPS AGAIN TO RESTART LEVOPHED THEN VASOPRESSIN.
[2021-03-16 16:02] LABS: ARTERIAL BLD GAS O2 SATURATION 86.8 % (92-100); ARTERIAL BLD GAS TCO2 CT 23.4; ARTERIAL BLOOD GAS BASE EXCESS -5.1 (-2-2); ARTERIAL BLOOD GAS HCO3 21.9 meq/L (22-26); ARTERIAL BLOOD GAS PCO2 48.9 mmHg (35-45); ARTERIAL BLOOD GAS PO2 59.1 mmHg (80-100); ARTERIAL BLOOD GAS pH 7.27 (7.35-7.45)
--- NOTE | 2021-03-16 16:25 | NUR ---
KIDS HERE. DR PERDOMO SPEAKS TO AC, SISTER IN LAW PER CAN'S REQUEST. DR RUBALCAVA AND DR PERDOMO PUT OUT POTNETNIAL TRANSFER REQUESTS FOR POTENTIAL ECMO FOR PT. CAN UPDATED ON POC AND PROVIDER'S OPINIONS ON PT'S CURRENT STATUS.
--- NOTE | 2021-03-16 18:10 | NUR ---
LT RADIAL TOF 3/4 BEFORE INITIATION OF VEC GTT. SEE GTT FLOWSHEET.
--- NOTE | 2021-03-16 18:20 | NUR ---
AT BEDSIDE FOR VISIT WITH .
--- NOTE | 2021-03-16 19:30 | NUR ---
CARE GIVEN TO CULLEN FLOREZ AT THIS TIME.
--- NOTE | 2021-03-16 19:35 | NUR ---
UPDATED DR PERDOMO ON PT'S CURRENT VSS.
[2021-03-16 20:08] LABS: ARTERIAL BLD GAS O2 SATURATION 95.1 % (92-100); ARTERIAL BLD GAS TCO2 CT 28.7; ARTERIAL BLOOD GAS HCO3 27.2 meq/L (22-26); ARTERIAL BLOOD GAS PCO2 49.2 mmHg (35-45); ARTERIAL BLOOD GAS PO2 77.9 mmHg (80-100); ARTERIAL BLOOD GAS pH 7.36 (7.35-7.45)
[2021-03-16 20:38] LABS: CALCIUM 7.6 mg/dL (8.4-10.2); CREATININE, serum 0.57 (0.52-1.25); POTASSIUM 5.6 mmol/L (3.4-5.0)
[2021-03-17] VITALS (748 sets, daily range): BP systolic 76–165; BP diastolic 51–110; PULSE 73–111; TEMP 97.8–99.3; O2SAT 31–100
--- NOTE | 2021-03-17 02:10 | NUR ---
PATIENT'S PULSE IS NOW IN THE 140S TO 150S RANGE,PATIENT APPEARS TO BE FASSICULATING ABOUT HANDS AND FACE, INCREASED VECURRONIUM, FENTAYL AND PROPOFOL, CALLED HOSPITALIST AND ECARE, FAMILY ON THEIR WAY.
--- NOTE | 2021-03-17 02:45 | NUR ---
ADMINISTERED LABETALOL VITALS ARE BECOMING REASONABLE, HOSPITALIST PRESENT
[2021-03-17 02:59] LABS: CALCIUM 7.6 mg/dL (8.4-10.2); CREATININE, serum 0.48 (0.52-1.25); POTASSIUM 4.5 mmol/L (3.4-5.0)
[2021-03-17 03:41] LABS: ARTERIAL BLD GAS TCO2 CT 35.9; ARTERIAL BLOOD GAS BASE EXCESS 6.8 (-2-2); ARTERIAL BLOOD GAS PCO2 60.6 mmHg (35-45); ARTERIAL BLOOD GAS pH 7.37 (7.35-7.45)
[2021-03-17 04:56] LABS: HEMATOCRIT 38.7 % (37.0-47.0); HEMOGLOBIN 12.5 g/dl (12.5-16.0); MEAN CELL VOLUME 91 fl (80.0-100.0); MEAN CORPUSCULAR HEMOGLOBIN 29 pg (27.0-31.0); MEAN CORPUSCULAR HGB CONC 32 g/dl (33.0-37.0); MEAN PLATELET VOLUME 11.5 fl (7.4-10.4); PLATELET COUNT 245 K/mm3 (130-400); RED BLOOD COUNT 4.25 M/mm3 (4.10-5.30); REDCELL DISTRIBUTION WIDTH-CV 13.4 % (11.5-14.5)
[2021-03-17 05:37] LABS: BAND 2 % (0-10); BASOPHIL 1 % (0-2); EOSINOPHIL 1 % (0-4); LYMPHOCYTE 8 % (20.0-51.0); METAMYELOCYTE 3 % (0-0); NEUTROPHILS 81 % (42.0-75.2); PLATELET ESTIMATE NORMAL (NORMAL)
[2021-03-17 05:38] LABS: HYPOCHROMIA 1+
--- NOTE | 2021-03-17 06:09 | NUR ---
PATIENT'S VITALS ARE IRREGULAR BOTH HYPER AND HYPOTENSION, EDEMA IS ESSENTIALLLY GROWING PAST THE SIZE OF THE SKIN, SURFACE AREA VERY LARGE AND HARD, LABATALOL ADMINISTERED IV.
--- NOTE | 2021-03-17 10:27 | NUR ---
Placed Vecuronium drip on standby per Dr. Doran. Will continue to monitor.
--- NOTE | 2021-03-17 12:00 | NUR ---
During assessment patient opened eyes to her name and was able to squeeze both hands upon request. Dr. Doran notified. Requested to keep off Vecuronium drip as long as patient continues to tolerate. Will continue to monitor.
--- NOTE | 2021-03-17 13:25 | NUR ---
Notified by solid waste technician that patient's BP was 60's/40's. RT currenlty at bedside. Levophed drip has been on hold and was re-initiated. RT having difficulty obtaining an 02 reading. Attempted multiple new probes. On finger o2 reading 40's-70's. After initiating levophed patient's BP incresased very quickly to 200's systolic. BP continued to drop to the 50's systolic then increase to the 200's while on and off levophed. Having difficulty titrating BP to appropriate levels. Dr. Doran called and did not answer. Hospitalist called and updated. RT increased patient's settings to 100% Fi02 and PEEP of 20. Vecuronium drip re-initiated and patient's o2 readings increased from the 70's to low 90's with stabilization of BP. Will continue to monitor.
--- NOTE | 2021-03-17 17:30 | NUR ---
Patient tolerating ventilator well; 02 in the upper 90's. RT attempting to titrate down PEEP and Fi02. Will continue to monitor.
--- NOTE | 2021-03-17 18:25 | NUR ---
Sedation vacation not performed due to vecuronium drip.
--- NOTE | 2021-03-17 20:00 | NUR ---
TOF 2/4 AT 8 ON NERVE STIMULATOR. NO CHANGE TO VEC DRIP.
[2021-03-17 21:07] LABS: ARTERIAL BLD GAS O2 SATURATION 92.5 % (92-100); ARTERIAL BLD GAS TCO2 CT 35.9; ARTERIAL BLOOD GAS BASE EXCESS 8.7 (-2-2); ARTERIAL BLOOD GAS HCO3 34.3 meq/L (22-26); ARTERIAL BLOOD GAS PCO2 51.5 mmHg (35-45); ARTERIAL BLOOD GAS PO2 63.3 mmHg (80-100); ARTERIAL BLOOD GAS pH 7.44 (7.35-7.45)
[2021-03-18] VITALS (732 sets, daily range): BP systolic 75–225; BP diastolic 50–97; PULSE 79–128; TEMP 97.2–98.7; O2SAT 72–100
--- NOTE | 2021-03-18 | NUR ---
TOF 1/4 ON 8 NERVE STIMULATOR. 1 MCG/KG/MIN OF VEC REDUCED TO 0.9 MCG/KG/MIN.
--- NOTE | 2021-03-18 04:00 | NUR ---
TOF 4/4 ON 3 OF NERVE STIMULATOR. VEC INCREASED FROM 0.9 MCG/KG/MIN TO 1 MCG/KG/MIN.
[2021-03-18 05:21] LABS: HEMOGLOBIN 11.8 g/dl (12.5-16.0); MEAN CELL VOLUME 92 fl (80.0-100.0); MEAN CORPUSCULAR HEMOGLOBIN 30 pg (27.0-31.0); MEAN CORPUSCULAR HGB CONC 33 g/dl (33.0-37.0); MEAN PLATELET VOLUME 11.1 fl (7.4-10.4); PLATELET COUNT 165 K/mm3 (130-400); RED BLOOD COUNT 3.93 M/mm3 (4.10-5.30); REDCELL DISTRIBUTION WIDTH-CV 13.2 % (11.5-14.5)
[2021-03-18 05:26] LABS: HEMATOCRIT 36.3 % (37.0-47.0)
[2021-03-18 05:37] LABS: BILIRUBIN,TOTAL 0.3 mg/dL (0.0-1.0); CALCIUM 7.8 mg/dL (8.4-10.2); CREATININE, serum 0.33 (0.52-1.25); MAGNESIUM 1.9 mg/dL (1.6-2.3); PHOSPHOROUS 2.2 mg/dL (2.5-4.5); TOTAL PROTEIN 5.8 gm/dL (6.4-8.2)
[2021-03-18 05:44] LABS: PRE ALBUMIN 25.3 mg/dL (17.6-36.0)
[2021-03-18 05:55] LABS: BAND 2 % (0-10); LYMPHOCYTE 6 % (20.0-51.0); NEUTROPHILS 82 % (42.0-75.2)
[2021-03-18 05:56] LABS: PLATELET ESTIMATE NORMAL (NORMAL)
--- NOTE | 2021-03-18 06:00 | NUR ---
TOF 2/4 ON 8 OF NERVE STIMULATOR. NO CHANGE TO VEC DRIP REMAINS AT 1 MCG/KG/MIN.
[2021-03-18 06:26] LABS: ARTERIAL BLD GAS O2 SATURATION 92.2 % (92-100); ARTERIAL BLD GAS TCO2 CT 35.4; ARTERIAL BLOOD GAS BASE EXCESS 9.5 (-2-2); ARTERIAL BLOOD GAS PCO2 45.9 mmHg (35-45); ARTERIAL BLOOD GAS PO2 62.6 mmHg (80-100); ARTERIAL BLOOD GAS pH 7.49 (7.35-7.45)
--- NOTE | 2021-03-18 06:48 | NUR ---
NO SEDATION VACATION DUE TO VEC DRIP.
--- NOTE | 2021-03-18 07:01 | NUR ---
PY MAINTAINED ON 0.3 MCG/KG/MIN OF LEVO THROUGOUT NIGHT UNTIL APPROX 0430 WHEN BP MEASURED WITH SBP >200 AND DIASTOLIC CLIMBING INTO 100S. LEVOPHED WAS STOPPED. ORDER FOR LABETALOL GIVEN. ONCE BP CAME BACK TO NBP AT APPROX 0515 (129/63), LEVO WAS RESUMED AT 0.03. BP THEN MEASURED WITH MAP OF 60-65 SO LEVO INCREASED TO 0.06 AND NBP HAS BEEN MAINTAINED SINCE. NOTED THAT PT ALSO WAS HAVING 2/4 TWITCHES ON TOF AT 8 ON NERVE STIMULATOR ALL NIGHT. AT THE TIME OF BP ELEVATION. TOF WITH ALL 4 TWITCHS ACIEVED AT 3 ON NERVE STIMULATOR SO VEC WAS INCREASED BY 0.1 MCG/KG/MIN. PT BP REMAINS NORMAL WITH 2/4 TWITCHES AGAIN ACHIEVED AT 8 ON STIMULATOR.
--- NOTE | 2021-03-18 07:09 | NUR ---
INCREASED FOR 4/4 TOF AT LOWER SETTING THAN BASELINE.
--- NOTE | 2021-03-18 07:10 | NUR ---
RECEIVED REPORT FROM CULLEN FERRARA. PT RESTING ON VETN: AC, TV 420, PEEP 16, RR 24, [id number]%. FC PATENT AND DRAINING TO GRAVITY. FABRIC WORKER IN PLACE. ART LINE NOTED, VSS. SEE GTT FLOWSHEET. TF INFUSING AT 40ML/HR.
--- NOTE | 2021-03-18 08:00 | NUR ---
DR PERDOMO AT BEDSIDE PLACED LEVOPHED GTT ON STANDBY D/T BP. VETN CHANGES TV 400, RR 16. RT AWARE.
--- NOTE | 2021-03-18 08:00 | NUR ---
AT LEVEL 8, TOF 3/4.
--- NOTE | 2021-03-18 10:50 | NUR ---
SPOKE TO DR PERDOMO. IF PT'S HR REMAINS ELEVATED AND SBP, START LABETOLOL GTT, SEE MAR. NEW ORDERS RECEIVED FOR SCHEDULED PO ATIVAN AND SEROQUEL. SEE GTT FLOWSHEET FOR CHANGES.
--- NOTE | 2021-03-18 12:00 | NUR ---
AT LEVEL 8, TOF 2/4. VSS. SEE GTT FLOWSHEET.
--- NOTE | 2021-03-18 16:15 | NUR ---
ON LEVEL 7, TOF 3/4.
--- NOTE | 2021-03-18 17:11 | NUR ---
NO SEDATION VACATION, PT ON VEC GTT. SEE OTHER NURSE NOTES FOR TOF.
--- NOTE | 2021-03-18 18:25 | NUR ---
LEVEL 6, TOF 3/4
[2021-03-19] VITALS (728 sets, daily range): BP systolic 74–183; BP diastolic 42–71; PULSE 78–114; TEMP 96.4–98; O2SAT 67–100
--- NOTE | 2021-03-19 01:40 | NUR ---
DENISA GALEANO) AT BEDSIDE TO REPLACE A LINE. UNABLE TO DRAW BLOOD OFF CURRENT BAILEY AND INTERVENTIONS TO GET ACCURATE BP READING FAILED.
--- NOTE | 2021-03-19 01:53 | NUR ---
NEW ARTERIAL LINE SUCCESSFULLY PLACED IN L FA AT THIS TIME.
--- NOTE | 2021-03-19 02:54 | NUR ---
PT BP ELEVATED C SBP IN 200S AND TOF 4/4 AT 8. PT PREVIOUSLY HAD BEEN 2/4 TWITCHES AT 8 ON NERVE STIMULATOR. GOAL TO INCREASE SEDATION AND PARALYTIC TO ACHIEVE MAP 65-75. PT TOLERATING VENT SETTINGS.
--- NOTE | 2021-03-19 03:21 | NUR ---
INCREASED VEC TO 1.1 MCG/KG/MIN FROM 1MCG/KG/MIN.
--- NOTE | 2021-03-19 03:23 | NUR ---
INCREASED VEC TO 1.2 MCG/KG/MIN.
--- NOTE | 2021-03-19 03:24 | NUR ---
DRIP LEFT AT 1.2 MCG/KG/MIN.
[2021-03-19 04:25] LABS: ARTERIAL BLD GAS O2 SATURATION 96.7 % (92-100); ARTERIAL BLD GAS TCO2 CT 37.2; ARTERIAL BLOOD GAS HCO3 35.2 meq/L (22-26); ARTERIAL BLOOD GAS PCO2 64.1 mmHg (35-45); ARTERIAL BLOOD GAS PO2 92.7 mmHg (80-100); ARTERIAL BLOOD GAS pH 7.36 (7.35-7.45)
[2021-03-19 04:33] LABS: HEMOGLOBIN 10.7 g/dl (12.5-16.0); MEAN CELL VOLUME 94 fl (80.0-100.0); MEAN CORPUSCULAR HEMOGLOBIN 30 pg (27.0-31.0); MEAN CORPUSCULAR HGB CONC 32 g/dl (33.0-37.0); MEAN PLATELET VOLUME 10.5 fl (7.4-10.4); PLATELET COUNT 115 K/mm3 (130-400); REDCELL DISTRIBUTION WIDTH-CV 13.2 % (11.5-14.5)
[2021-03-19 04:43] LABS: CALCIUM 7.9 mg/dL (8.4-10.2); CREATININE, serum 0.43 (0.52-1.25); MAGNESIUM 2.1 mg/dL (1.6-2.3); PHOSPHOROUS 3.3 mg/dL (2.5-4.5); POTASSIUM 4.5 mmol/L (3.4-5.0)
[2021-03-19 04:47] LABS: HEMATOCRIT 33.7 % (37.0-47.0)
[2021-03-19 05:07] LABS: BAND 4 % (0-10); LYMPHOCYTE 7 % (20.0-51.0); METAMYELOCYTE 1 % (0-0); NEUTROPHILS 87 % (42.0-75.2); PLATELET ESTIMATE DECREASED (NORMAL)
--- NOTE | 2021-03-19 06:46 | NUR ---
NO SEDATION VACATION DUE TO PATIENT ON VEC DRIP.
--- NOTE | 2021-03-19 07:30 | NUR ---
AND DAUGHTER UPATED OVERNIGHT.
--- NOTE | 2021-03-19 07:30 | NUR ---
BEDSIDE SHIFT REPORT RECEIVED FROM CULLEN FERRARA. PATIENT IN BED SEDATED AND VENTILATED. STILL HAS RIGHT CHEST TUBE, LEFT ARTERIAL LINE, RIGHT UPPER ARM PICC AND OLIVERA CATHETER STILL IN PLACE. SEE GTT TITRATION FLOWSHEET. VSS.
[2021-03-19 15:41] LABS: ARTERIAL BLD GAS O2 SATURATION 92.6 % (92-100); ARTERIAL BLD GAS TCO2 CT 36.2; ARTERIAL BLOOD GAS BASE EXCESS 7.2 (-2-2); ARTERIAL BLOOD GAS HCO3 34.3 meq/L (22-26); ARTERIAL BLOOD GAS PO2 68.5 mmHg (80-100); ARTERIAL BLOOD GAS pH 7.36 (7.35-7.45)
--- NOTE | 2021-03-19 17:15 | NUR ---
NO SEDATION VACATION TODAY. BLOOD PRESSURES TOO UNSTABLE.
--- NOTE | 2021-03-19 18:07 | NUR ---
UPDATED PATIENT'S , STORMY, REGARDING PATIENT'S CURRENT STATUS.
--- NOTE | 2021-03-19 22:19 | NUR ---
Assessment complete and charted. Patient sedated and on ventilator at this time
[2021-03-20] VITALS (697 sets, daily range): BP systolic 75–185; BP diastolic 46–73; PULSE 96–119; TEMP 97.2–100.8; O2SAT 76–100
--- NOTE | 2021-03-20 03:50 | NUR ---
Levophed restarted at this time due to pressures 80s/40s.
--- NOTE | 2021-03-20 05:15 | NUR ---
Sedation vacation not preformed. Blood pressure liable. Not tolerated. On vecuronium.
[2021-03-20 05:16] LABS: HEMOGLOBIN 10.7 g/dl (12.5-16.0); MEAN CELL VOLUME 95 fl (80.0-100.0); MEAN CORPUSCULAR HEMOGLOBIN 30 pg (27.0-31.0); MEAN CORPUSCULAR HGB CONC 32 g/dl (33.0-37.0); MEAN PLATELET VOLUME 11.9 fl (7.4-10.4); PLATELET COUNT 144 K/mm3 (130-400); RED BLOOD COUNT 3.57 M/mm3 (4.10-5.30); REDCELL DISTRIBUTION WIDTH-CV 13.8 % (11.5-14.5)
[2021-03-20 05:25] LABS: ARTERIAL BLD GAS O2 SATURATION 95.4 % (92-100); ARTERIAL BLD GAS TCO2 CT 36.5; ARTERIAL BLOOD GAS BASE EXCESS 6.2 (-2-2); ARTERIAL BLOOD GAS HCO3 34.4 meq/L (22-26); ARTERIAL BLOOD GAS PO2 81.5 mmHg (80-100); ARTERIAL BLOOD GAS pH 7.31 (7.35-7.45)
[2021-03-20 05:27] LABS: ARTERIAL BLOOD GAS PCO2 69.7 mmHg (35-45)
[2021-03-20 05:34] LABS: CALCIUM 7.6 mg/dL (8.4-10.2); CREATININE, serum 0.42 (0.52-1.25); POTASSIUM 4.8 mmol/L (3.4-5.0)
--- NOTE | 2021-03-20 06:10 | NUR ---
Patient remains sedated and intubated on vecuronium. Repositioned Q2H. Patient levophed restarted during night.
[2021-03-20 06:22] LABS: BAND 2 % (0-10); LYMPHOCYTE 8 % (20.0-51.0); METAMYELOCYTE 1 % (0-0); NEUTROPHILS 85 % (42.0-75.2); PLATELET ESTIMATE NORMAL (NORMAL)
--- NOTE | 2021-03-20 07:27 | NUR ---
Report given to CULLEN Spears
--- NOTE | 2021-03-20 20:35 | NUR ---
SEDATION VACATION NOT DONE, WHEN PATIENTS SEDATION IS DECREASED, SHE BECOMES INCREASINGLY AGITATED AND STARTS STACKING BREATHS AND PEAK VOLUMES INCREASE SIGNIFICANTLY.
--- NOTE | 2021-03-20 21:20 | NUR ---
Mariaelena physician notified that patient's BP suddenly 200's systolic. Patient's BP's have been very labile for the last several days. Peak pressures also elevated. RT at bedside and removed condensation build up from vent tubing. Peak pressures back down to previous levels ,however, Bp continues to be elevated. Considered administering labatelol however, after discussing with Dr. Leyva patient's BP begain lowering to 140's-150's systolic. Will continue to monitor at this time.
--- NOTE | 2021-03-20 21:23 | NUR ---
PATIENT VERY BECAME VERY AGITATED WHEN THE VEC WAS DISCONTINUED THIS MORNING; LEVO WAS ALSO STOPPED AND PATIENT'S BLOOD PRESSURE AND HEART RATE WERE LABILE UNTIL THIS AFTERNOON WHEN SHE STAYED TACHYCARDIC AND HYPOTENSIVE.
--- NOTE | 2021-03-20 21:30 | NUR ---
PER DR PERDOMO
--- NOTE | 2021-03-20 21:43 | NUR ---
PER DR PERDOMO
--- NOTE | 2021-03-20 21:43 | NUR ---
PER DR PERDOMO
[2021-03-21] VITALS (83 sets, daily range): BP systolic 74–244; BP diastolic 43–92; PULSE 89–140; TEMP 37.5; O2SAT 91–100
--- NOTE | 2021-03-21 01:18 | NUR ---
Patient hypotesive with systolic 70's to low 80's. Re-initiated levophed at 0.01 mcg/kg/min due to patient's extremely labile BP's. BP stable at this time Will continue to montitor.
[2021-03-21 03:44] LABS: ARTERIAL BLD GAS O2 SATURATION 88.9 % (92-100); ARTERIAL BLD GAS TCO2 CT 30.1; ARTERIAL BLOOD GAS BASE EXCESS 3.2 (-2-2); ARTERIAL BLOOD GAS HCO3 28.6 meq/L (22-26); ARTERIAL BLOOD GAS PCO2 47.3 mmHg (35-45)
--- NOTE | 2021-03-21 05:27 | NUR ---
BP elevated from 190's to 240's systolic. BP has been labile throughout this shift. Called Dr. Leyva from [facility]. Advised at this time to just continue to monitor as we want to avoid causing a swing in blood pressure resulting in hypotension. Requested to wait 30 minutes and then follow up.
[2021-03-21 05:29] LABS: HEMOGLOBIN 11.6 g/dl (12.5-16.0); MEAN CELL VOLUME 94 fl (80.0-100.0); MEAN CORPUSCULAR HEMOGLOBIN 30 pg (27.0-31.0); MEAN CORPUSCULAR HGB CONC 32 g/dl (33.0-37.0); MEAN PLATELET VOLUME 11.1 fl (7.4-10.4); PLATELET COUNT 112 K/mm3 (130-400); RED BLOOD COUNT 3.87 M/mm3 (4.10-5.30); REDCELL DISTRIBUTION WIDTH-CV 14.2 % (11.5-14.5)
[2021-03-21 05:33] LABS: HEMATOCRIT 36.4 % (37.0-47.0)
[2021-03-21 05:39] LABS: CREATININE, serum 0.38 (0.52-1.25)
--- NOTE | 2021-03-21 06:00 | NUR ---
BP now 170's to low 200's. Spoke again with Dr. Leyva. Will continue to monitor. If patient becomes hypotensive will try neosynephrine instead of levophed. Also can consult cardiology in the morning.
[2021-03-21 06:12] LABS: BAND 14 % (0-10); EOSINOPHIL 2 % (0-4); HYPOCHROMIA 2+; LYMPHOCYTE 9 % (20.0-51.0); NEUTROPHILS 71 % (42.0-75.2); PLATELET ESTIMATE DECREASED (NORMAL)
--- NOTE | 2021-03-21 07:09 | NUR ---
Sedation vacation not performed due to patient having very elevated BP's and being very sensitive to external stimuli.
--- NOTE | 2021-03-21 08:20 | NUR ---
DR PERDOMO HERE. DISCUSSED HIGH RESIDUALS AND DECREASED BOWEL SOUNDS. ONE TIME REGLAN ORDERED.
--- NOTE | 2021-03-21 08:30 | NUR ---
CAN CALLED IN TO GET UPDATE. UPDATE GIVEN. ALLOWED CAN TO TALK TO THE PATIETN OVER SPEAKER PHONE.
--- NOTE | 2021-03-21 09:45 | NUR ---
CALLED IN TO GET UPDATE. UPDATE GIVEN. ALLOWED TO SPEAK TO PATIETN OVER SPEAKERPHONE.
--- NOTE | 2021-03-21 10:30 | NUR ---
CALLED BACK FOR ANOTHER UPDATE. REQUESTING THAT WE ACCESS THE PATIENTS PHONE SO THAT WE CAN PLAY KOSOVAN GOSPEL MUSIC FROM HER [employer] PAGE. PROVIDED CODE TO THE PHONE AND DIRECTIONS ON HOW TO ACCESS.
--- NOTE | 2021-03-21 15:00 | NUR ---
CALLED FOR ANOTHER UPDATE. WILL DO FAMILY MEETING IN AM. CONTINUED TO ANSWER QUESTIONS.
[2021-03-21 16:43] LABS: ARTERIAL BLD GAS O2 SATURATION 77.5 % (92-100); ARTERIAL BLD GAS TCO2 CT 32.5; ARTERIAL BLOOD GAS BASE EXCESS 5.7 (-2-2); ARTERIAL BLOOD GAS PCO2 48.5 mmHg (35-45); ARTERIAL BLOOD GAS PO2 41.6 mmHg (80-100); ARTERIAL BLOOD GAS pH 7.42 (7.35-7.45)
--- NOTE | 2021-03-21 17:00 | NUR ---
UNABLE TO DO SEDATION VACATION AT THIS TIME. THROUGH THE DAY WHEN SEDATION HELD FOR SHORT TIME PATIENT BECAME VERY HYPERTENSIVE, TACHYCARDIC, AND TACHPNIC. TOO UNSTABLE TO DO SEDATION VACATION AT THIS TIME.
[2021-03-22] VITALS: BP 108/60; PULSE 98; TEMP 37.4
--- NOTE | 2021-03-22 01:53 | NUR ---
SEDATION INCREASED DT PT RR 35-40 BPM. ASYNCHRONOUS WITH VENT AND LABILE BPS.
--- NOTE | 2021-03-22 02:01 | NUR ---
CALLED [facility] AT 2030 DT PT VENT ALARMING FOR VT NOT REACHED WITH HIGH PEAK PRESSURES ALONG WITH HYPOTENSION WITH BPS LOW 60/40S. SEDATION WAS LOWERED INITIALLY TO SUPPORT BP AND GET ACCURATE NEURO CHECK. EQUAL AND REACTIVE PUPILS, CORNEAL REFLEX INTAACT BILAT., NOT MOVING/WITHDRAWING TO PAIN IN EXTREMETIES. THEN BPS INCREASED TO 200S SBP AND BREATHING 30+ BPM. DIFFICULT TO STABILIZE BP AND VENT TOLERANCE AT THE SAME TIME. [facility] ORDERED CHEST XRAY TO CHECK PROGRESSION OF PNEUMO AND SUGGESTED TO AVOID VEC. PT HAS BEEN ON VEC DRIP AND HAD THESE BP AND VENT ISSUES BEFORE AND COULD BE SOURCE OF THE PROBLEM. ALSO UNLIKELY THE VEC WOULD HELP LABILE BPS. MAXED SEDATION AND STARTED KENA-SYNEPHERINE ALONG WITH DECREASING PEEP. THESE INTERVENTIONS HELPED STABILIIZE PT FOR THE TIME BEING. CHEST XRAY SHOWED NO CHANGE SINCE EARLIER IN THE DAY. PTS DAUGHTER, CAN, ALSO CALLED AT THIS TIME AND WAS INFORMED PT WAS PLACE ON BP MEDICATION AGAIN AND IS NOT STABLE. EXPLAINED THAT BP, HR AND O2 HAVE BEEN LABILE. DAUGHTER ASKED IF "SWELLING" REFERING TO CREPITUS HAD GOTTEN BETTER AND SHE WAS TOLD THAT IT HAS GONE DOWN BUT IS STILL PRESENT. PT WANTS TO KNOW RESULTS OF CHEST XRAY IN THE MORNING BUT HAS NO OTHER QUESTIONS AT THIS TIME.
[2021-03-22 03:52] LABS: ARTERIAL BLD GAS O2 SATURATION 75.2 % (92-100); ARTERIAL BLD GAS TCO2 CT 32.2; ARTERIAL BLOOD GAS BASE EXCESS 5.9 (-2-2); ARTERIAL BLOOD GAS HCO3 30.8 meq/L (22-26); ARTERIAL BLOOD GAS PCO2 46.4 mmHg (35-45); ARTERIAL BLOOD GAS pH 7.44 (7.35-7.45)
[2021-03-22 04:00] VITALS: BP 103/53; PULSE 92; TEMP 37.9
[2021-03-22 04:33] LABS: HEMOGLOBIN 10.1 g/dl (12.5-16.0); MEAN CELL VOLUME 93 fl (80.0-100.0); MEAN CORPUSCULAR HEMOGLOBIN 30 pg (27.0-31.0); MEAN CORPUSCULAR HGB CONC 33 g/dl (33.0-37.0); MEAN PLATELET VOLUME 11.4 fl (7.4-10.4); PLATELET COUNT 100 K/mm3 (130-400); RED BLOOD COUNT 3.32 M/mm3 (4.10-5.30); REDCELL DISTRIBUTION WIDTH-CV 14.6 % (11.5-14.5)
[2021-03-22 04:43] LABS: CALCIUM 8.1 mg/dL (8.4-10.2); CREATININE, serum 0.42 (0.52-1.25)
[2021-03-22 04:51] VITALS: BP 76/62
[2021-03-22 05:06] LABS: BAND 8 % (0-10); EOSINOPHIL 2 % (0-4); HYPOCHROMIA 1+; LYMPHOCYTE 11 % (20.0-51.0); NEUTROPHILS 73 % (42.0-75.2); PLATELET ESTIMATE DECREASED (NORMAL)
[2021-03-22 05:07] LABS: ANISOCYTOSIS 1+; POIKILOCYTOSIS 1+; SCHISTOCYTES 1+
[2021-03-22 06:01] LABS: CHOLESTEROL RISK RATIO 6.6
--- NOTE | 2021-03-22 07:04 | NUR ---
SEDATION NOT LOWERED DUE TO PATIENT ACTIVE IN ALL 4 EXTREMETIES/RESTLESS. DROP IN O2 SATS TO 80-90% RR IN 30S. CANNOT SAFELY LOWER SEDATION.
--- NOTE | 2021-03-22 07:20 | NUR ---
BEDSIDE SHIFT REPORT RECEIVED FROM CULLEN FERRARA. PATIENT IS STILL SEDATED AND VENTILATED. BLOOD PRESSURES WERE HYPER AND HYPOTENSIVE PER REPORT. WILL ASSES FURTHER. RIGHT UPPER ARM PICC, LEFT ARTERIAL FOREARM LINE AND OLIVERA CATHETER STILL IN PLACE. OTHER VITAL SIGNS STABLE. SEE GTT TITRATION FLOWSHEET.
[2021-03-22 08:00] VITALS: BP 118/55; PULSE 112; TEMP 38
--- NOTE | 2021-03-22 08:07 | NUR ---
DISCUSSED PT PROGRESSION EXTENSIVELY WITH DR. LIMA ([facility]) OVERNIGHT. PT HAS KNOWN LABILE BPS AND HR AND A FEW NOTEABLE OCCASIONS OF O2 DESATURATION DURING THIS ICU STAY. HOWEVER, THIS EVENING WAS A NOTEABLE DECLINE. KENA-SYNEPHERINE WAS RESTARTED AND PAUSED MULTIPLE TIMES. FI02 WAS INCREASED FROM 85-100% AFTER ATTEMPTING TO FURTHER SEDATE PT TO ALLOW VENT TOLERANCE. PROPOFOL WAS CHOICE OF SEDATION BUT WAS LATER PAUSED DT EFFECT ON BP AND NEED FOR EXTENSIVE INCREASE IN KENA. CHEST XRAY WAS ALSO OBTAINED OVERNIGHT FOR EXPLANATION OF DESATURATION AND INCREASIGLY UNSTABLE VS. CHEST XRAY SHOWED NO SIGNIFICANT CHANGE. DR. LIMA PLACED ORDER FOR CTA OF CHEST TO RULE OUT PE WHEN PT STABLE ENOUGH FOR TRANSPORT. ALL OF THESE EVENTS DISCUSSED WITH DAY SHIFT NURSE. DAUGHTER CAN ALSO CALLED FOR UPDATE LAST NIGHT AND WAS TOLD THAT PT IS NOT STABLE AND CONTINUESE TO BE DEPENDANT ON ALL OF OUR INTERVENTIONS WHICH INCLUDE O2 AND BP SUPPORT.
--- NOTE | 2021-03-22 11:50 | NUR ---
PT CODED FOR THIRD TIME, ASYSTOLE AND PEA, PHYSICIAN CALLED END TO CODE, PT .
--- NOTE | 2021-03-22 12:36 | NUR ---
PATIENT STARTED TO CODE AT 0943, 1050 AND 1127. SEE CODE SHEETS
--- NOTE | 2021-03-22 12:59 | NUR ---
CALLED TO ASSIST WITH CODE TOOK OVER BAGGING FOR OTHER RT IN ROOM.
--- NOTE | 2021-03-22 13:13 | NUR ---
1203: Exterior Door Installer, Dope Maintenance Worker RN, notified of time of ; reached out to [facility] via phone, pt screened and no interventions, referral # [id number]. 1241: Exterior Door Installer phoned [facility] in [place], [place] and coordinated transport; tentative arrival at 1450; next of kin and family contact information relayed; MEDICAID SPECIALIST nurse and Charge nurse notified.
== END 2021-03-22 15:10 | disposition expired | DRG 207 ==
LOC: COL.ER 12:30 → MEDICAL 16:25 → ICU 03-08 02:37 → MEDICAL 03-09 23:53 → ICU 03-12 02:44
PROVIDERS: Internal Medicine; Internal Medicine Pulmonary Disease; Internal Medicine Sleep Medicine; Physician Assistant; Student in an Organized Health Care Education/Training Program; ADMIT Internal Medicine
PROC: XW033E5 Introduction of Remdesivir Anti-infective into Peripheral Vein, Percutaneous Approach, New Technology Group 5 (ICD-10-PCS; principal; 2021-03-07)
PROC: 0W9930Z Drainage of Right Pleural Cavity with Drainage Device, Percutaneous Approach (ICD-10-PCS; 2021-03-12)
PROC: 02HV33Z Insertion of Infusion Device into Superior Vena Cava, Percutaneous Approach (ICD-10-PCS; 2021-03-12)
PROC: 5A1955Z Respiratory Ventilation, Greater than 96 Consecutive Hours (ICD-10-PCS; 2021-03-13)
PROC: 0BH17EZ Insertion of Endotracheal Airway into Trachea, Via Natural or Artificial Opening (ICD-10-PCS; 2021-03-22)
DX: U07.1 COVID-19 (principal); J12.82 Pneumonia due to coronavirus disease 2019; J96.01 Acute respiratory failure with hypoxia; J93.11 Primary spontaneous pneumothorax; E03.9 Hypothyroidism, unspecified; I10 Essential (primary) hypertension; R50.9 Fever, unspecified; I95.9 Hypotension, unspecified; J98.2 Interstitial emphysema; E83.39 Other disorders of phosphorus metabolism; D69.6 Thrombocytopenia, unspecified; I46.9 Cardiac arrest, cause unspecified; R00.0 Tachycardia, unspecified
CPT/HCPCS: 99223-AI; 99232-AI; 99233-AI; A4314; C1751; J0171; J0330; J0360; J0692; J0696; J1100; J1650; J1815; J1940; J2060; J2250; J2270; J2370; J2704; J2765; J3010; J3370; J3480; J7030; J7050; J7060; J7120; J8540; Q0249; Q9967